=== PATIENT | female | born 1965 | race Caucasian/White ===

== ENCOUNTER 2017-09-12 06:07 | Day surgery (SDC) | payer OTHER ==
[~2017-09-12 06:07] MED LIST: METFORMIN HCL500 MG PO; METOPROLOL SUCC50 MG PO
== END 2017-09-12 16:25 | disposition home or self-care (01) ==
LOC: CIR.AMB 06:07
DX: M19.042 Primary osteoarthritis, left hand (principal)

== ENCOUNTER 2019-05-21 08:08 | Day surgery (SDC) | payer OTHER ==
[~2019-05-21 08:08] MED LIST changes: +TOPROL XL100 M1
== END 2019-05-21 18:40 | disposition home or self-care (01) ==
LOC: CIR.AMB 08:08
DX: M19.242 Secondary osteoarthritis, left hand (principal); S52.532A Colles' fracture of left radius, initial encounter for closed fracture; M65.842 Other synovitis and tenosynovitis, left hand

== ENCOUNTER 2021-03-16 05:53 | Day surgery (SDC) | payer OTHER ==
[~2021-03-16 05:53] MED LIST changes: +CLONAZEPAM2 MG PO; +COZAAR50 MG PO; +ELAVIL PO; +PEPCID PO
== END 2021-03-16 16:00 | disposition home or self-care (01) ==
LOC: CIR.AMB 05:53
PROVIDERS: ATTEND Orthopaedic Surgery Hand Surgery
DX: M19.241 Secondary osteoarthritis, right hand (principal); Z20.822 Contact with and (suspected) exposure to COVID-19